=== PATIENT | male | born 1995 | race Asian ===

== ENCOUNTER 2023-03-16 03:02 | Emergency (ER) | payer SELFPAY ==
[~2023-03-16] VITALS: Ht 182.9 cm; Wt 68.0 kg
[2023-03-16 03:10] VITALS: BP 96/57; PULSE 88; RESP 16; TEMP 97.4; O2SAT 99
[2023-03-16 03:31] VITALS: BP 108/67; PULSE 88; RESP 16; TEMP 97.4; O2SAT 99
== END 2023-03-16 03:31 | disposition home or self-care (01) ==
LOC: MED 03:02
DX: Z02.89 Encounter for other administrative examinations (principal); V89.2XXA Person injured in unspecified motor-vehicle accident, traffic, initial encounter; Y93.89 Activity, other specified; Y92.410 Unspecified street and highway as the place of occurrence of the external cause; Y99.8 Other external cause status
CPT/HCPCS: 99283